=== PATIENT | female | born 1995 | race Two or more races ===

== ENCOUNTER 2025-05-04 01:27 | Emergency (ER) | payer OTHER, SELFPAY ==
[2025-05-04 01:30] VITALS: BP 127/87; PULSE 87; RESP 20; TEMP 36.6; O2SAT 100; BMI 18.7
[2025-05-04] MEDS: Lidocaine HCl 1 % 20 ML VIAL 4 ML INFILTRATI (01:53)
--- NOTE | 2025-05-04 02:05 | ED_ITS ---
HPI - Skin/Abscess/Foreign Bdy General Chief complaint: Skin/Abscess/Foreign Body Stated complaint: lac on finger Time Seen by Provider: 05/04/25 01:34 Source: patient Mode of arrival: ambulatory Limitations: no limitations History of Present Illness ED Provider: Dr. Lacie Vázquez HPI narrative: Patient comes to the emergency room complaining of a laceration to the left hand. Patient states that she was getting ready to eat dinner, pulled out a 1 bottle, fell and lacerated her hand in the webspace between in the thumb and the index finger. Any other injuries, denies being on blood thinners Related Data Allergies Allergy/AdvReac Type Severity Reaction Status Date / Time No Known Allergies Allergy Verified 05/04/25 01:31 Review of Systems Review of Systems: Constitutional : No Weight loss, No Fever, No Chills, No Night Sweats, No Fatigue, No Malaise ENT/Mouth : No Hearing loss, No Ear Pain, No Nasal Congestion, No Sinus Pain, No Hoarseness, No sore throat, No Rhinorrhea, No Swallowing Difficulty Eyes: No Eye Pain, No Swelling, No Redness, No Foreign Body, No Discharge, No Vision Changes Cardiovascular : No Chest Pain, No SOB, No Dyspnea on Exertion, No Orthopnea, No Edema, No Palpitations Respiratory : No Cough, No Sputum, No Wheezing, No Smoke Exposure, No Dyspnea Gastrointestinal : No Nausea, No Vomiting, No Diarrhea, No Constipation, No abdominal Pain, No Hematochezia, No Melena Genitourinary : no irregular bleeding, No Dysuria, No Urinary Frequency, No Hematuria, No Urinary Incontinence, No Urgency, No Flank Pain, No Urinary Flow Changes, No Hesitancy Musculoskeletal : No joint pain, No Myalgias, No Joint Swelling Skin : Complaining of a laceration to left hand Neuro : No Weakness, No Numbness, No Paresthesias, No Loss of Consciousness, No Dizziness, No Headache Psych : No Anxiety/Panic, No Depression, No SI/HI/AH/VH, No Social Issues, Heme/Lymph: No Bruising, No Bleeding,No Lymphadenopathy Endocrine : No Polyuria, No Polydipsia, No Temperature Intolerance Physical Exam Exam: Exam: Appearance: Alert. Oriented X3. No acute distress. Eyes: Pupils equal, round and reactive to light. ENT: Pharynx normal. Neck: Normal inspection. Neck supple. No lymph nodes noted. No crepitus CVS: Normal heart rate and rhythm. Pulses normal. Normal S1 and S2 Respiratory: No respiratory distress. Breath sounds normal. No Wheezing. No rales Abdomen: Soft and nontender. No rigidity. No distention. Skin: Skin warm and dry. Normal skin color. Normal skin turgor there is a 2.5 cm laceration in the webspace between the thumb and the index finger on the left hand. Patient examined under a bloodless field, no tendons. Patient able to flex and extend all fingers, oppose the thumb.. Extremities: No lower extremity edema. No Lacerations. No Rash Neuro: Oriented X 3. No motor deficit. No sensory deficit. Moving all extremities. No slurred speech. CN 2 through 12 grossly intact Psych: calm, cooperative, normal affect Vital Signs: Vital Signs: Last Vital Signs Temp 97.8 F 05/04/25 01:30 Pulse 87 05/04/25 01:30 Resp 20 05/04/25 01:30 BP 127/87 05/04/25 01:30 Pulse Ox 100 05/04/25 01:30 O2 Del Method Room Air 05/04/25 01:30 BMI result Body Mass Index 18.7 Medications Administered Discontinued Medications Generic Name Dose Route Start Last Admin Trade Name Freq PRN Reason Stop Dose Admin Lidocaine HCl 4 ml 05/04/25 01:40 05/04/25 01:53 Lidocaine Hcl 1 % 20 Ml Vial INFILTRATI 05/04/25 01:41 4 ml ONCE ONE Administration Medical Decision Making Medical Decision Making [facility] Narrative: Patient received 6 stitches Tolerated well the procedure Patient declined Tdap at this time, patient will check her records and check if she is due for a booster Procedures Laceration Laceration 1: Site: hand Side (If applicable): left Size (cm): 2.5 Description: linear Depth: simple, single layer Local Anesthetic: lidocaine 1% Amount of anesthesia used (mL): 5 Pre-repair: wound explored Skin layer closed with: nylon Size (cm): 5-0 Number of sutures: 6 Technique: simple, interrupted Discharge Plan Discharge Clinical Impression: Laceration of hand Patient Disposition: Home, Self-Care Instructions: Laceration (ED), Care For Your Stitches (ED) Additional Instructions: Your stitches need to be removed in 7-10 days. If you see any signs of infection such as pus drainage, redness, pain out of proportion, fever, please return to the emergency room. Please follow-up with your primary care physician tomorrow. If you have any worsening or new symptoms, please return to the emergency room or call 911
[2025-05-04 02:22] VITALS: BP 127/87; PULSE 87; RESP 20; TEMP 36.6; O2SAT 100
--- OUTSIDE RECORDS SUMMARY | 2025-05-04 02:28 | XMS_ITS | Clinical Summary ---
Author Organization [facility] Address [address] [place] [address] Phone Care Team Providers Care Indian Nanny Name Role Phone Physician, No Pcp Primary Care Provider Unavaila ble Allergies No known active allergies Medical History Medical History Date Comments Asthma Sinusitis Gastritis Social History Tobacco Use Types Packs/Day Years Used Date Smoking Tobacco: Never Smokeless Tobacco: Never Alcohol Use Standard Drinks/Week Comments No 0 (1 standard drink = 0.6 oz pur e alcohol) Comments No Sex and Gender Information Value Date Recorded Sex Assigned at Female 09/27/2024 4:11 PM EST Legal Sex Female 11:07 AM EST Gender Identity Female 09/24/2024 10:08 PM EST Sexual Orientation Straight 09/27/2024 4: 11 PM EST Obstetrics History Last Filed Vital Signs Vital Sign Reading Time Taken Comments Blood Pressure 112/70 09/23/2024 6:48 AM EST Pulse 59 09/23/2024 6:48 AM EST Temperature 37.1 C (98.8 F) 09/23/2024 6:48 AM EST Respiratory Rate 18 09/23/2024 6:48 AM EST Oxygen Saturation 98% 09/23/2024 6:48 AM EST Inhaled Oxygen Concentration - - Weight 53.1 kg (117 lb) 09/22/2024 8:14 PM EST Height 172.7 cm (5' 8 ) 09/22/2024 8:14 PM EST Body Mass Index 17.79 09/22/2024 8:14 PM EST Plan of Treatment Health Maintenance Due Date Last Done Comments DTaP,Tdap,and Td Vaccines (1 - Tdap) 2016 Hepatitis B Vaccines (1 of 3 - 19+ 3-dose series) 2016 Cervical Cancer Screening: P ap Smear 2018 COVID-19 Vaccine (1 - 2023-2 5 season) 2024 Depression Screening 09/11/2024 HIV Screening 09/23/2024 Hepatitis C Screening 09/23/2024 Social Influencers of Health Screening 09/23/2024 Influenza Vaccine (#1) 2025 HIB Vaccines Aged Out No longer eligi ble based on patient's age to complete this topic HPV Vaccines Aged Out No longer eligi ble based on patient's age to complete this topic Hepatitis A Vaccines Aged Out No long er eligible based on patient's age to complete this topic IPV Vaccines Aged Out No longer eligi ble based on patient's age to complete this topic MMR Vaccines Aged Out No longer eligi ble based on patient's age to complete this topic Meningococcal ACWY Vaccine Aged Out N o longer eligible based on patient's age to complete this topic Meningococcal B Vaccine Aged Out No l onger eligible based on patient's age to complete this topic Pneumococcal Vaccine: Pediat rics (0 to 5 Years) and At-Risk Patients (6 to 49 Years) Aged Out No longer eligible b ased on patient's age to complete this topic RSV Immunization Patients Un soheila 20 months Aged Out No longer eligible b ased on patient's age to complete this topic Varicella Vaccines Aged Out No longer eligible based on patient's age to complete this topic [place] [address] Care Teams Indian Nanny Relationship Specialty Start Date End Date Physician, No Pcp PCP - General 09/23/24
== END 2025-05-04 02:26 | disposition home or self-care (01) ==
LOC: HO.ED 02:26
PROVIDERS: Emergency Provider Emergency Medicine
DX: S61.412A Laceration without foreign body of left hand, initial encounter (principal); W25.XXXA Contact with sharp glass, initial encounter; Y93.89 Activity, other specified; Y92.239 Unspecified place in hospital as the place of occurrence of the external cause; Y99.9 Unspecified external cause status
CPT/HCPCS: 12002; 99283; 99284; J2003

== ENCOUNTER 2025-05-16 18:46 | Emergency (ER) | payer OTHER, SELFPAY ==
[2025-05-16 18:48] VITALS: BP 124/56; PULSE 71; RESP 16; TEMP 36.6; O2SAT 98; BMI 18.0
--- NOTE | 2025-05-16 18:48 | ED_ITS ---
HPI - General Adult General Stated complaint: removing stitches Time Seen by Provider: 05/16/25 18:48 Source: patient, RN notes reviewed and old records reviewed Mode of arrival: ambulatory Limitations: no limitations History of Present Illness ED Provider: [facility] narrative: Patient is a 29-year-old female presenting to the emergency department for suture removal of sutures placed to left hand on 05/04/2025. She denies any pain or other complications. MD complaint: suture removal Related Data Allergies Allergy/AdvReac Type Severity Reaction Status Date / Time No Known Allergies Allergy Verified 05/16/25 18:52 Review of Systems 2 Review of Systems: as per hpi Yes all other systems are reviewed and are negative Constitutional: Constitutional: Reports as per HPI Physical Exam ED Vital Signs: Vital signs have been reviewed and appear to be correct. Blood pressure normal. Heart rate normal. Respiratory rate normal. Temperature normal. Oxygen saturation normal. Const General: cooperative, healthy appearing and no acute distress Orientation/consciousness: oriented to person, oriented to place, oriented to time and patient oriented x3 Limitations: no limitations HENMT Head: Yes normocephalic and Yes atraumatic Ears: external ears normal General nose exam: Normal external nose present Face and sinus: Yes face symmetric Mouth: oropharynx normal and moist mucous membranes Throat: Yes uvula midline Eyes Pupils: Equal, round and reactive pupils present Neck Neck: Yes normal visual inspection and Yes supple Resp Effort & Inspection: normal respiratory effort and able to speak in complete sentences Auscultation: clear to auscultation bilaterally Cardio Rate: regular rate Rhythm: regular rhythm Heart sounds: S1 normal heart sound present and S2 normal heart sound present Skin General skin exam: elasticity normal and turgor normal Neuro General: oriented to person, oriented to place, oriented to time, patient oriented x3, moves all extremities, no focal motor deficits and CN's II-XI intact bilaterally Cranial nerves: Yes Equal, round and reactive pupils present Cognition (Neuro): normal cognition Extrem General: Yes full ROM, Yes no pedal edema and Yes no calf tenderness Hand/finger images: [address], wound well healed, no erythema, warmth or drainage Psych Mental Status: mental status grossly normal Affect: normal affect Thought process: Normal thought process present Medical Decision Making Medical Decision Making [facility] Narrative: Patient is a 29-year-old female presenting to the emergency department for suture removal of sutures placed to left hand on 05/04/2025. On exam patient is awake, A+Ox3, VS WNL, afebrile, normal neurological exam without focal deficits, physical exam findings as above. Given reported symptoms and physical exam findings, initial differential includes but is not limited to suture removal, wound check. 6 sutures removed without difficulty with success. Dressing applied. Wound care instructions discussed. Return precautions discussed. Patient verbalized understanding of and agreement with plan. Differential Diagnosis Differential Diagnoses: The differential diagnosis associated with the presentation includes as per [facility] Admission/Observation Consideration of admission/observation: Escalation of care including admission/observation considered Patient would have been admitted to the hospital had their clinical presentation warranted hospital admission. External Record Review External record reviewed: Inpatient record, Office record and Outpatient record Discharge Plan Discharge Clinical Impression: Visit for suture removal Patient Disposition: Home, Self-Care Instructions: Stitches Removal (ED) Additional Instructions: You were seen in the emergency department today for suture removal. Your wound appears to be healing well. Please keep the area surrounding the wound clean and dry andcover with Band-Aid until fully healed. Do not submerge in water until fully healed. Please continue to assess the wound daily. Keep the area out of direct sunlight for the next 6 months to help prevent scarring. If you develop fever, redness, swelling at the site of your laceration, or thick yellow drainage please come back to the ER for a wound check. Print Language: [place]
--- OUTSIDE RECORDS SUMMARY | 2025-05-16 19:05 | XMS_ITS | Clinical Summary ---
Author Organization [facility] Address [address] [place] [address] Phone Care Team Providers Care Practice Nurse Name Role Phone Physician, No Pcp Primary [...] Cervical Cancer Screening: P ap Smear 2018 Depression Screening 09/11/2024 HIV Screening 09/23/2024 Hepatitis C Screening 09/23/2024 Social Influencers of Health Screening 09/23/2024 COVID-19 Vaccine (2023-2 5 season) 2025 Influenza Vaccine (#1) 2025 HIB Vaccines Aged [...] complete this topic RSV Immunization Patients Un sohiela 20 months Aged Out No longer eligible b ased on patient's age to complete this topic Varicella Vaccines Aged Out No longer eligible based on patient's age to complete this topic [place] [address] [place] [address] Care Teams Practice Nurse Relationship Specialty Start Date End Date Physician, No Pcp PCP - General 09/23/24
--- OUTSIDE RECORDS SUMMARY | 2025-05-16 19:05 | XMS_ITS | Clinical Summary ---
Author Organization [facility] Address [address] [place] [address] Care Team Providers Care Presiding Steward Name Role Phone Unavailable Primary Care Provider Unavailabl e Allergies Active Allergy Reactions Criticality Noted Date Comments Shrimp 02/10/2020 Medications Medication Sig Dispensed Refills Start Date End Date Status famotidine (PEPCID) 20 MG tablet Take 1 tablet (20 mg total) by mouth 2 (two) times a day. 40 tablet 0 02/11/2020 Active sucralfate (CARAFATE) 1 g tablet Take 1 tablet (1 g total) by mouth 4 (four) times a day. 30 tablet 0 02/11/2020 Active Social History Tobacco Use Types Packs/Day Years Used Date Smoking Tobacco: Never Smokeless Tobacco: Never Alcohol Use Standard Drinks/Week Comments No 0 (1 standard drink = 0.6 oz pur e alcohol) Sex and Gender Information Value Date Recorded Sex Assigned at Female 02/10/2020 11:04 PM EDT Gender Identity Not on file Sexual Orientation Not on file Last Filed Vital Signs Vital Sign Reading Time Taken Comments Blood Pressure 122/91 02/10/2020 10:25 PM EDT Pulse 91 02/10/2020 10:25 PM EDT Temperature 36.6 C (97.9 F) 02/10/2020 10:25 PM EDT Respiratory Rate 18 02/10/2020 10:25 PM EDT Oxygen Saturation 100% 02/10/2020 10:25 PM EDT Inhaled Oxygen Concentration - - Weight - - Height - - Body Mass Index - - Plan of Treatment Health Maintenance Due Date Last Done Comments Hepatitis B Vaccines (1 of 3 - 3-dose series) 1997 Hepatitis C Screening 1997 COVID-19 Vaccine (#1) 02/12/1998 Depression Screening 2009 Preventative Health Evaluation 2015 DTap / Tdap / Td (1 - Tdap) 2016 Cervical Cancer Screening (P ap Smear) 2018 Influenza Vaccine (#1) 2025 Pneumococcal Vaccine Aged Out No long er eligible based on patient's age to complete this topic RSV Ped < 20 months Aged Out No longe r eligible based on patient's age to complete this topic
[2025-05-16 19:09] VITALS: BP 124/56; PULSE 71; RESP 16; TEMP 36.6; O2SAT 98
== END 2025-05-16 19:09 | disposition home or self-care (01) ==
PROVIDERS: Emergency Provider Emergency Medicine
DX: Z48.02 Encounter for removal of sutures (principal)
CPT/HCPCS: 99282